=== PATIENT | female | born 1935 | race African-American/Black ===

== ENCOUNTER 2019-01-07 17:16 | Emergency (ER) | payer MEDICARE, OTHER ==
[~2019-01-07] VITALS: Ht 160 cm; Wt 72.6 kg
[2019-01-07 17:45] LABS: BASO % 0 % (0-3); EOS # 0.2 x10^3/uL (0.0-0.7); EOS % 2 % (0-3); HEMATOCRIT 30.8 % (36.0-47.0); HEMOGLOBIN 10.2 g/dL (12.0-15.5); LYMPH # 2.2 x10^3/uL (1.0-4.8); LYMPH % 30 % (24-48); MEAN CORPUSCULAR HEMOGLOBIN 28 pg (25-35); MEAN CORPUSCULAR HGB CONC 33 g/dL (31-37); MEAN CORPUSCULAR VOLUME 85 fL (79-100); MONO # 0.5 x10^3/uL (0.0-1.1); MONO % 7 % (0-9); NEUT # 4.4 x10^3uL (1.8-7.7); NEUT % 61 % (31-73); PLATELET COUNT 266 x10^3/uL (140-400); RED BLOOD COUNT 3.61 x10^6/uL (3.50-5.40); RED CELL DISTRIBUTION WIDTH 14.6 % (11.5-14.5); WHITE BLOOD COUNT 7.3 x10^3/uL (4.0-11.0)
[2019-01-07 17:51] LABS: PROTHROMBIN TIME PATIENT 12.9 SEC (11.7-14.0)
[2019-01-07 17:57] LABS: CALCIUM 8.8 mg/dL (8.5-10.1); CREATININE 1.1 mg/dL (0.6-1.0); GFR 47.7; POTASSIUM 4.6 mmol/L (3.5-5.1)
[2019-01-07 18:03] LABS: ALBUMIN 3.2 g/dL (3.4-5.0); ALBUMIN/GLOBULIN RATIO 0.9 (1.0-1.7); TOTAL BILIRUBIN 0.1 mg/dL (0.2-1.0); TOTAL PROTEIN 6.7 g/dL (6.4-8.2)
--- NOTE | 2019-01-07 18:13 | PHYS DOC ---
Past Medical History Past Medical History: Anemia, Anxiety, Dementia, Diabetes-Type II, GERD Additional Past Medical Histor: DYSPHASIA, ALZHEIMERS (ELIDIA HINOJOSA APRN) Past Surgical History: No Surgical History (ELIDIA HINOJOSA APRN) Alcohol Use: None Drug Use: None (ELIDIA HINOJOSA APRN) Adult General Chief Complaint Chief Complaint: MECHANICAL FALL HPI HPI Patient is a 83 year old female with history of depression, anemia, anxiety, up pacing, contractures of upper extremities bilaterally, who presents to the ED today from a shelter status post falling. This was an unwitnessed fall. I'm getting most of the report from nursing staff. Patient was apparently found on the ground from the bed. They believe she fell and hit her head on the ground. She is apparently on blood thinners-unknown name. She is not able to give us any history. Unable to assess for pain. Nursing staff state she had complained of pain at the shelter, nurse when to get Tylenol and found her on the ground. (ELIDIA HINOJOSA APRN) Review of Systems Review of Systems Constitutional: MARCELLA Eyes: MARCELLA HENT: MARCELLA Respiratory: MARCELLA Cardiovascular: MARCELLA GI: MARCELLA [] : MARCELLA Musculoskeletal: reports hand pain per nursing staff Integument: MARCELLA Neurologic: fall hit head on the ground All other systems were reviewed and found to be within normal limits, except as documented in this note. (ELIDIA HINOJOSA APRN) Current Medications Current Medications Current Medications Medications (Trade) Dose Ordered Sig/Lissette Start Time Stop Time Status Last Admin Dose Admin Sodium Chloride 1,000 ml @ 1,000 mls/hr 1X ONCE 01/07/19 18:15 01/07/19 19:14 DC 01/07/19 18:32 1,000 MLS/HR (ASHLEY POST MD) Allergies Allergies Allergies Coded Allergies Type Severity Reaction Last Updated Verified MANJEET Inhibitors Allergy Unknown 01/07/19 Yes Penicillins Allergy Unknown 01/07/19 Yes (ASHLEY POST MD) Physical Exam Physical Exam Constitutional: Well developed, well nourished, no acute distress, non-toxic appearance. [] HENT: Normocephalic, bilateral external ears normal, oropharynx moist, no oral exudates, nose normal. [] Eyes: PERRLA, EOMI, conjunctiva normal, no discharge. [] Neck: Normal range of motion, no tenderness, supple, no stridor. [] Cardiovascular:Heart rate regular rhythm, no murmur [] Lungs & Thorax: Bilateral breath sounds clear to auscultation [] Abdomen: Bowel sounds normal, soft, no tenderness, no masses, no pulsatile masses. [] Skin: Warm, dry, no erythema, no rash. [] Back: No tenderness, no CVA tenderness. [] Extremities: No tenderness, no cyanosis, no clubbing, contracted upper extremiti es in splints Neurologic: Alert and oriented X 1, normal motor function, normal sensory function, no focal deficits noted. Cranial nerves II through XII intact Psychologic: flat affect (MUTUNGA,ELIDIA BUSINESS CONTINUITY PLANNER) Current Patient Data Vital Signs Vital Signs Date Time Temp Pulse Resp B/P (MAP) Pulse Ox O2 Delivery O2 Flow Rate FiO2 01/07/19 20:30 84 24 92 01/07/19 17:21 98.9 128/64 (85) Room Air 98.9 (ASHLEY POST MD) Lab Values Laboratory Tests Test 01/07/19 17:30 01/07/19 20:03 White Blood Count 7.3 x10^3/uL (4.0-11.0) Red Blood Count 3.61 x10^6/uL (3.50-5.40) Hemoglobin 10.2 g/dL (12.0-15.5) L Hematocrit 30.8 % (36.0-47.0) L Mean Corpuscular Volume 85 fL (79-100) Mean Corpuscular Hemoglobin 28 pg (25-35) Mean Corpuscular Hemoglobin Concent 33 g/dL (31-37) Red Cell Distribution Width 14.6 % (11.5-14.5) H Platelet Count 266 x10^3/uL (140-400) Neutrophils (%) (Auto) 61 % (31-73) Lymphocytes (%) (Auto) 30 % (24-48) Monocytes (%) (Auto) 7 % (0-9) Eosinophils (%) (Auto) 2 % (0-3) Basophils (%) (Auto) 0 % (0-3) Neutrophils # (Auto) 4.4 x10^3uL (1.8-7.7) Lymphocytes # (Auto) 2.2 x10^3/uL (1.0-4.8) Monocytes # (Auto) 0.5 x10^3/uL (0.0-1.1) Eosinophils # (Auto) 0.2 x10^3/uL (0.0-0.7) Basophils # (Auto) 0.0 x10^3/uL (0.0-0.2) Prothrombin Time 12.9 SEC (11.7-14.0) Prothrombin Time INR 1.0 (0.8-1.1) Sodium Level 139 mmol/L (136-145) Potassium Level 4.6 mmol/L (3.5-5.1) Chloride Level 104 mmol/L (98-107) Carbon Dioxide Level 27 mmol/L (21-32) Anion Gap 8 (6-14) Blood Urea Nitrogen 34 mg/dL (7-20) H Creatinine 1.1 mg/dL (0.6-1.0) H Estimated GFR (Cockcroft-Gault) 47.7 BUN/Creatinine Ratio 31 (6-20) H Glucose Level 167 mg/dL (70-99) H Calcium Level 8.8 mg/dL (8.5-10.1) Magnesium Level 2.0 mg/dL (1.8-2.4) Total Bilirubin 0.1 mg/dL (0.2-1.0) L Aspartate Amino Transferase (AST) 16 U/L (15-37) Alanine Aminotransferase (ALT) 17 U/L (14-59) Alkaline Phosphatase 141 U/L (46-116) H Creatine Kinase 127 U/L (26-192) Creatine Kinase MB (Mass) 1.7 ng/mL (0.0-3.6) Creatine Kinase MB Relative Index 1.3 % (0-4) Troponin I Quantitative < 0.017 ng/mL (0.000-0.055) JI-Dih-R-Type Natriuretic Peptide 571 pg/mL (0-449) H Total Protein 6.7 g/dL (6.4-8.2) Albumin 3.2 g/dL (3.4-5.0) L Albumin/Globulin Ratio 0.9 (1.0-1.7) L Urine Collection Type U cath Urine Color Yellow Urine Clarity Cloudy Urine pH 6.5 Urine Specific [place] 1.010 Urine Protein Negative mg/dL (NEG-TRACE) Urine Glucose (UA) Negative mg/dL (NEG) Urine Ketones (Stick) Negative mg/dL (NEG) Urine Blood Trace (NEG) Urine Nitrite Positive (NEG) Urine Bilirubin Negative (NEG) Urine Urobilinogen Dipstick 0.2 mg/dL (0.2 mg/dL) Urine Leukocyte Esterase Large (NEG) Urine RBC 0 /HPF (0-2) Urine WBC 1-4 /HPF (0-4) Urine Squamous Epithelial Cells Mod /LPF Urine Bacteria Many /HPF (0-FEW) Urine Opiates Screen Neg (NEG) Urine Methadone Screen Neg (NEG) Urine Barbiturates Neg (NEG) Urine Phencyclidine Screen Neg (NEG) Urine Amphetamine/Methamphetamine Neg (NEG) Urine Benzodiazepines Screen Neg (NEG) Urine Cocaine Screen Neg (NEG) Urine Cannabinoids Screen Neg (NEG) Urine Ethyl Alcohol Neg (NEG) Laboratory Tests 01/07/19 17:30 Laboratory Tests 01/07/19 17:30 (ASHLEY POST MD) EKG EKG 17:[address] Marroquin sinus rhythm HR 88 no STEMI[] (ELIDIA HINOJOSA APRN) Radiology/Procedures Radiology/Procedures []PROCEDURE: PORTABLE CHEST 1V Single view chest dated 01/07/2019. Comparison made to 04/23/2011. CLINICAL INDICATION: Pain after fall. FINDINGS: Single upright portal exam performed. Heart and mediastinal contours are stable. There is some increased density at the retrocardiac left base. Lungs are otherwise clear. No consolidation or pleural effusion. No pneumothorax. IMPRESSION: 1. Patchy left basilar opacity, likely atelectasis or scarring. Correlate clinically. 2. Otherwise stable findings compared to 04/23/2011 Electronically signed by: Parag Howard MD (01/07/2019 6:56 PM) [facility] DICTATED and SIGNED BY: PARAG HOWARD MD DATE: 01/07/19 1856 PROCEDURE: HAND BILAT 3V Three-view bilateral hand dated 01/07/2019. No comparison available. Clinical data indication: Pain after injury. FINDINGS: There are bilateral contractures with flexion deformity at the wrist joint and MCP joints. Secondary degenerative change at the radiocarpal joints and carpometacarpal joints and interphalangeal joints. No apparent acute fracture. IMPRESSION: 1. No acute radiographic abnormality. 2. Bilateral contractures with degenerative changes as described. Electronically signed by: Parag Howard MD (01/07/2019 7:18 PM) [facility] DICTATED and SIGNED BY: PARAG HOWARD MD DATE: 01/07/191917 PROCEDURE: CT HEAD AND CERVICAL SPINE WO CT head without contrast and CT cervical spine without contrast dated 01/07/2019. Comparison made to 04/23/2011. 10/01/2010. CLINICAL INDICATION: Pain after fall. TECHNIQUE: Contiguous axial imaging the head was performed from skull base to vertex. In addition, axial imaging the cervical spine acquired with thin cut coronal and sagittal reconstruction. One or more of the following individualized dose reduction techniques were utilized for this examination: 1. Automated exposure control 2. Adjustment of the mA and/or kV according to patient size 3. Use of iterative reconstruction technique. FINDINGS: Ventricles and sulci are mildly prominent for age. 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 Patchy low density in the deep/subcortical periventricular white matter has somewhat progressed from prior study. Vague low density in the central tony is unchanged and there is a small remote lacunar infarct of the right cerebellum. No hemorrhage or extra-axial collection. Posterior fossa and brainstem otherwise unremarkable. Visualized paranasal sinuses and mastoid air cells are clear. No apparent calvarial abnormality. Images of the cervical spine were acquired skull base to T2. Sagittal alignment is anatomic. Vertebral body heights are maintained. No prevertebral soft tissue swelling. Posterior elements are intact. Mild to moderate endplate hypertrophic changes throughout with prominent anterior osteophytes. There is moderate to severe disc space narrowing at C5-C6 and C6-C7 with multilevel uncovertebral spurring and facet arthropathy. Moderate to severe bilateral foraminal stenosis at C5-C6. Milder degrees of foraminal narrowing at the remaining levels. No significant central canal stenosis. Limited images of the lung apices are clear. There is mild emphysema. Visualized soft tissue structures unremarkable. Atherosclerotic calcifications of the carotid arteries. IMPRESSION HEAD: 1. No evidence of acute intracranial hemorrhage or mass. 2. Moderate chronic small vessel ischemic changes in the deep/subcortical periventricular white matter. 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 Impression cervical spine: 1. No evidence of fracture or malalignment. 2. Moderate multilevel spondylosis. 3. Mild emphysema. Electronically signed by: Parag Howard MD (01/07/2019 6:38 PM) [facility] DICTATED and SIGNED BY: PARAG HOWARD MD DATE: 01/07/191837 PROCEDURE: HIP BILATERAL WITH PELVIS Single view pelvis and two-view bilateral hip dated 01/07/2019. No comparison available CLINICAL INDICATION: Hip pain. Recent fall. FINDINGS: AP view pelvis and lateral views of each hip were obtained. Bony alignment is anatomic. No displaced fracture. Pelvic ring is intact. Mild degenerative change of the bilateral hip joint and symphysis. Mild degenerative change of the bilateral SI joint with moderate spondylotic change of the lower lumbar spine. IMPRESSION: 1. No acute radiographic abnormality. 2. Degenerative changes as described. Electronically signed by: Parag Howard MD (01/07/2019 7:17 PM) [facility] DICTATED and SIGNED BY: PARAG HOWARD MD DATE: 01/07/191916 (ELIDIA HINOJOSA APRN) Course & Med Decision Making Course & Med Decision Making Pertinent Labs and Imaging studies reviewed. (See chart for details) This is a 83-year-old female patient is aphasic presenting from a shelter status post falling. Unable to obtain much information other than what nursing staff is reporting to me. Patient had apparently complained about hand pain in the shelter, they went to get her Tylenol and left her in the bed, they found on the floor. They believe she fell down hitting her head. They states she is on a blood thinner. No name was given twice. She is currently at her baseline. CT of the head, cervical spine, chest x-ray, bilateral hip x-rays including pelvis, bilateral hand [id number] for any acute findings. CBC, CMP, troponin-negative for any acute findings. Urine analysis appears contaminated though it's noted for large amount of leukocytes and nitrates. Discharged with Macrobid. (ELIDIA HINOJOSA APRN) Course & Med Decision Making Staff Physician Addendum: I was working in the ER during the course of this patient's visit. I was available for consultation as needed, but I was not directly involved in the care of this patient. (ASHLEY POST MD) Dragon Disclaimer Dragon Disclaimer This electronic medical record was generated, in whole or in part, using a voice recognition dictation system. (ELIDIA HINOJOSA APRN) Departure Departure Impression: Primary Impression: Fall from bed Additional Impressions: Head contusion Urinary tract infection Disposition: 01 HOME, SELF-CARE Condition: STABLE Patient Instructions: Contusion, [id number], Fall Prevention and Home Safety, [id number]-[id number], Urinary Tract Infection Additional Instructions: Shruthiwas evaluated in the emergency room after falling. Her CT of the head, cervical spine, chest x-ray, bilateral hip x-rays including pelvis, bilateral hand x-rays are negative for any acute findings. Lab work was negative for any acute findings, she was noted for urinary tract infection, we put her on antibiotics, ensure she completes them. Please follow-up with her own doctor in the next 7 days. Scripts Nitrofurantoin Monohyd/M-Cryst (MACROBID 100 MG CAPSULE) 100 Mg Capsule 1 CAP PO BID, #14 CAP Prov: ELIDIA HINOJOSA APRN 01/07/19 Problem Qualifiers Primary Impression: Fall from bed Encounter type: initial encounter Qualified Codes: W06.XXXA - Fall from bed, initial encounter Additional Impressions: Head contusion Encounter type: initial encounter Contusion of head detail: scalp Qualified Codes: S00.03XA - Contusion of scalp, initial encounter Urinary tract infection Urinary tract infection type: site unspecified Hematuria presence: without hematuria Qualified Codes: N39.0 - Urinary tract infection, site not specified ELIDIA HINOJOSA APRN Jan 07, 2019 18:13 ASHLEY POST MD Jan 08, 2019 05:00
[2019-01-07] MEDS ORDERED: IV NORMAL SALINE 1000ML BAG 1,000 ML IV ONE (18:15)
--- NOTE | 2019-01-07 18:41 | RAD ---
CT head without contrast and CT cervical spine without contrast dated 01/07/2019. Comparison made to 04/23/2011. 10/01/2010. CLINICAL INDICATION: Pain after fall. TECHNIQUE: Contiguous axial imaging the head was performed from skull base to vertex. In addition, axial imaging the cervical spine acquired with thin cut coronal and sagittal reconstruction. One or more of the following individualized dose reduction techniques were utilized for this examination: 1. Automated exposure control 2. Adjustment of the mA and/or kV according to patient size 3. Use of iterative reconstruction technique. FINDINGS: Ventricles and sulci are mildly prominent for age. 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 Patchy low density in the deep/subcortical periventricular white matter has somewhat progressed from prior study. Vague low density in the central tony is unchanged and there is a small remote lacunar infarct of the right cerebellum. No hemorrhage or extra-axial collection. Posterior fossa and brainstem otherwise unremarkable. Visualized paranasal sinuses and mastoid air cells are clear. No apparent calvarial abnormality. Images of the cervical spine were acquired skull base to T2. Sagittal alignment is anatomic. Vertebral body heights are maintained. No prevertebral soft tissue swelling. Posterior elements are intact. Mild to moderate endplate hypertrophic changes throughout with prominent anterior osteophytes. There is moderate to severe disc space narrowing at C5-C6 and C6-C7 with multilevel uncovertebral spurring and facet arthropathy. Moderate to severe bilateral foraminal stenosis at C5-C6. Milder degrees of foraminal narrowing at the remaining levels. No significant central canal stenosis. Limited images of the lung apices are clear. There is mild emphysema. Visualized soft tissue structures unremarkable. Atherosclerotic calcifications of the carotid arteries. IMPRESSION HEAD: 1. No evidence of acute intracranial hemorrhage or mass. 2. Moderate chronic small vessel ischemic changes in the deep/subcortical periventricular white matter. 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 Impression cervical spine: 1. No evidence of fracture or malalignment. 2. Moderate multilevel spondylosis. 3. Mild emphysema. Electronically signed by: Parag Howard MD (01/07/2019 6:38 PM) [facility]
--- NOTE | 2019-01-07 19:00 | RAD ---
Single view chest dated 01/07/2019. Comparison made to 04/23/2011. CLINICAL INDICATION: Pain after fall. FINDINGS: Single upright portal exam performed. Heart and mediastinal contours are stable. There is some increased density at the retrocardiac left base. Lungs are otherwise clear. No consolidation or pleural effusion. No pneumothorax. IMPRESSION: 1. Patchy left basilar opacity, likely atelectasis or scarring. Correlate clinically. 2. Otherwise stable findings compared to 04/23/2011 Electronically signed by: Parag Howard MD (01/07/2019 6:56 PM) [facility]
--- NOTE | 2019-01-07 19:19 | RAD ---
Single view pelvis and two-view bilateral hip dated 01/07/2019. No comparison available CLINICAL INDICATION: Hip pain. Recent fall. FINDINGS: AP view pelvis and lateral views of each hip were obtained. Bony alignment is anatomic. No displaced fracture. Pelvic ring is intact. Mild degenerative change of the bilateral hip joint and symphysis. Mild degenerative change of the bilateral SI joint with moderate spondylotic change of the lower lumbar spine. IMPRESSION: 1. No acute radiographic abnormality. 2. Degenerative changes as described. Electronically signed by: Parag Howard MD (01/07/2019 7:17 PM) [facility]
--- NOTE | 2019-01-07 19:21 | RAD ---
Three-view bilateral hand dated 01/07/2019. No comparison available. Clinical data indication: Pain after injury. FINDINGS: There are bilateral contractures with flexion deformity at the wrist joint and MCP joints. Secondary degenerative change at the radiocarpal joints and carpometacarpal joints and interphalangeal joints. No apparent acute fracture. IMPRESSION: 1. No acute radiographic abnormality. 2. Bilateral contractures with degenerative changes as described. Electronically signed by: Parag Howard MD (01/07/2019 7:18 PM) [facility]
[2019-01-07 20:11] LABS: BILIRUBIN,URINE NEGATIVE (NEG); CLARITY,URINE CLOUDY; COLOR,URINE YELLOW; NITRITE,URINE POSITIVE (NEG); PH,URINE 6.5; PROTEIN,URINE NEGATIVE (NEG-TRACE); UROBILINOGEN,URINE 0.2 mg/dL (0.2 mg/dL)
[2019-01-07 20:19] LABS: AMPHETAMINE/METHAMPHETAMINE NEG (NEG); BARBITURATES NEG (NEG); BENZODIAZEPINES NEG (NEG); CANNABINOIDS NEG (NEG); COCAINE NEG (NEG); METHADONE NEG (NEG); OPIATES NEG (NEG); PHENCYCLIDINE NEG (NEG)
[2019-01-07 20:21] LABS: BACTERIA,URINE MANY /HPF (0-FEW); RBC,URINE 0 /HPF (0-2)
[2019-01-07 20:22] LABS: SQUAMOUS EPITHELIAL CELL,UR MOD /LPF
[2019-01-07 20:30] VITALS: BP 140/64
[2019-01-07] MEDS ORDERED: NITR100C62 PO (20:47)
--- NOTE | 2019-01-08 08:35 | EKG ---
[facility] [address] [place] [address] Test Date: 2019-01-07 Test Time: 17:43:04 Pat Name: AGUSTIN LEVINE Department: Room: Gender: F Sterilizer Machine Operator: : [id number] Requested By: ELIDIA HINOJOSA Order Number: [id number] Reading MD: Measurements Intervals [place] Rate: 88 P: -3 CT: 126 QRS: -68 QRSD: 126 T: 39 QT: 422 QTc: 514 Interpretive Statements SINUS RHYTHM COMPLEX(ES) WITH ABERRANT INTRAVENTRICULAR CONDUCTION INDETERMINATE AXIS LOW LIMB LEAD VOLTAGE LEFT ANTERIOR FASCICULAR BLOCK NON SPECIFIC INTRAVENTRICULAR BLOCK ABNORMAL ECG No previous ECG available for comparison
== END 2019-01-07 22:42 | disposition home or self-care (01) ==
LOC: ER 17:16
DX: S00.83XA Contusion of other part of head, initial encounter (principal); N39.0 Urinary tract infection, site not specified; M79.642 Pain in left hand; M79.641 Pain in right hand; R07.89 Other chest pain; M25.551 Pain in right hip; M25.552 Pain in left hip; Z86.2 Personal history of diseases of the blood and blood-forming organs and certain disorders involving the immune mechanism; E11.9 Type 2 diabetes mellitus without complications; K21.9 Gastro-esophageal reflux disease without esophagitis; Z88.0 Allergy status to penicillin; Z88.8 Allergy status to other drugs, medicaments and biological substances; W06.XXXA Fall from bed, initial encounter; Y93.89 Activity, other specified; Y92.89 Other specified places as the place of occurrence of the external cause; Y99.8 Other external cause status
CPT/HCPCS: 36415; 70450; 71045; 72125; 73130; 73521; 80053; 80307; 81001; 82553; 83735; 83880; 84484; 85025; 85610; 87086; 93005; 99285; J7030

== ENCOUNTER 2019-01-22 07:17 | Emergency (ER) | payer MEDICARE, OTHER ==
[~2019-01-22] VITALS: Ht 165.1 cm; Wt 72.6 kg
[~2019-01-22 07:17] MED LIST: NITR100C62 PO
--- NOTE | 2019-01-22 07:45 | PHYS DOC ---
Past Medical History Past Medical History: Anemia, Anxiety, Dementia, Diabetes-Type II, GERD Additional Past Medical Histor: DYSPHASIA, ALZHEIMERS Past Surgical History: No Surgical History Alcohol Use: None Drug Use: None Adult General Chief Complaint Chief Complaint: MECHANICAL FALL HPI HPI Patient is an 83-year-old female, with a history of Alzheimer's dementia, nonverbal, his mental status is at baseline according to EMS and alf report, was found lying on the floor next to her bed on this morning. There was a red vickie on her right cheek, which caused concern among the staff and referred the patient to the emergency department for evaluation. There is also concerning that she takes Plavix. The patient is nonverbal with contractures of her extremities at baseline. She is unable to provide any meaningful history. However, according to EMS, the patient's current condition is close to baseline, and her right cheek. Pt's code status is DNR, per [place] paperwork Review of Systems Review of Systems Unable to obtain review of systems patient mental status. Allergies Allergies Allergies Coded Allergies Type Severity Reaction Last Updated Verified MANJEET Inhibitors Allergy Unknown 01/07/19 Yes Penicillins Allergy Unknown 01/07/19 Yes Physical Exam Physical Exam PHYSICAL EXAM: CONSTITUTIONAL: Well developed, well nourished HEAD: normocephalic, atraumatic EENT: PERRL, EOMI. Conjunctivae normal color, sclerae non-icteric; moist mucous membranes. There is a bruise appearing right cheek, with some mild tenderness in the remainder the facial bones are nontender. NECK: There is no definite tenderness to palpation of the cervical spine, but exam is limited secondary to lack of patient mental capacity. LUNGS: Lungs CTA, breathing even and unlabored. Normal air movement. HEART: Regular rate and rhythm, no murmur CHEST: No deformity; non-tender ABDOMEN: The abdomen is soft, and non-tender, no masses or bruits. EXTREM:There are contractures in all 4 extremities, without any definite extremity deformity, trauma, or tenderness to palpation SKIN: No rash; no diaphoresis NEURO: Patient is nonverbal, unable to provide any meaningful history. Current Patient Data Vital Signs Vital Signs Date Time Temp Pulse Resp B/P (MAP) Pulse Ox O2 Delivery O2 Flow Rate FiO2 01/22/19 07:46 96.9 62 14 128/58 (81) 91 Room Air 96.9 EKG EKG [] Radiology/Procedures Radiology/Procedures [PROCEDURE: CT CERVICAL SPINE WO CONTRAST Examination: CT CERVICAL SPINE WO CONTRAST, CT HEAD AND MAXILLOFACIAL WO History: Fall, trauma, injury, pain Comparison/Correlation: 01/20/2019 CT cervical spine without contrast, 01/07/2019 CT head and cervical spine without contrast Findings: Axial images of the head, maxillofacial structures, and cervical spine were obtained. Sagittal and coronal reformatted images were provided. Atrophy is present. No intracranial hemorrhage. 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 No midline shift or mass effect. Cavernous carotid calcification noted. Globes and optic nerves are unremarkable. Atlantoaxial joint degenerative remodeling is present. Degenerative remodeling of the left temporomandibular joint is present. Calcific involvement of the carotid bulb bilaterally is noted. Opacification of the right external auditory canal noted. Atlantoaxial joint degenerative remodeling is present. Severe C5-6 disc space narrowing is present. Moderate C6/7 disc space narrowing is noted. Spurring involving the anterior aspect of the cervical spine. Neural foraminal narrowing is especially evident at the right C3-4 neural foramen due to bony encroachment. This is also evident at the right C4-5 level. Emphysematous involvement of the lung apices noted. Impression: No intracranial hemorrhage. Old infarcts. Degenerative change of the cervical spine. No fracture or malalignment.] Course & Med Decision Making Course & Med Decision Making Pertinent Imaging studies reviewed. (See chart for details) [] Dragon Disclaimer Dragon Disclaimer This electronic medical record was generated, in whole or in part, using a voice recognition dictation system. Departure Departure Impression: Primary Impression: Fall from bed Additional Impression: Facial contusion Disposition: HOME, SELF-CARE Condition: STABLE Referrals: JOO JOSE MD (PCP) Patient Instructions: Contusion, Fall Prevention and Home Safety, Fall Prevention in Hospitals Problem Qualifiers ESTHER WHITE MD Jan 22, 2019 07:45
--- NOTE | 2019-01-22 08:49 | RAD ---
Examination: CT CERVICAL SPINE WO CONTRAST, CT HEAD AND MAXILLOFACIAL WO History: Fall, trauma, injury, pain Comparison/Correlation: 01/20/2019 CT cervical spine without contrast, 01/07/2019 CT head and cervical spine without contrast Findings: Axial images of the head, maxillofacial structures, and cervical spine were obtained. Sagittal and coronal reformatted images were provided. Atrophy is present. No intracranial hemorrhage. 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 No midline shift or mass effect. Cavernous carotid calcification noted. Globes and optic nerves are unremarkable. Atlantoaxial joint degenerative remodeling is present. Degenerative remodeling of the left temporomandibular joint is present. Calcific involvement of the carotid bulb bilaterally is noted. Opacification of the right external auditory canal noted. Atlantoaxial joint degenerative remodeling is present. Severe C5-6 disc space narrowing is present. Moderate C6/7 disc space narrowing is noted. Spurring involving the anterior aspect of the cervical spine. Neural foraminal narrowing is especially evident at the right C3-4 neural foramen due to bony encroachment. This is also evident at the right C4-5 level. Emphysematous involvement of the lung apices noted. Impression: No intracranial hemorrhage. Old infarcts. Degenerative change of the cervical spine. No fracture or malalignment. PQRS Compliance Statement: One or more of the following individualized dose reduction techniques were utilized for this examination: 1. Automated exposure control 2. Adjustment of the mA and/or kV according to patient size 3. Use of iterative reconstruction technique Electronically signed by: Keegan John MD (01/22/2019 8:46 AM) [id number]
[2019-01-22 09:30] VITALS: BP 137/50
== END 2019-01-22 09:49 | disposition home or self-care (01) ==
LOC: ER 07:17
DX: S00.83XA Contusion of other part of head, initial encounter (principal); R51 Headache; G30.9 Alzheimer's disease, unspecified; F02.81 Dementia in other diseases classified elsewhere, unspecified severity, with behavioral disturbance; E11.9 Type 2 diabetes mellitus without complications; K21.9 Gastro-esophageal reflux disease without esophagitis; Z88.0 Allergy status to penicillin; Z88.8 Allergy status to other drugs, medicaments and biological substances; W06.XXXA Fall from bed, initial encounter; Y93.89 Activity, other specified; Y92.89 Other specified places as the place of occurrence of the external cause; Y99.8 Other external cause status
CPT/HCPCS: 70450; 70486; 72125; 99284